=== PATIENT | female | born 1975 | race American Indian/Alaskan Native ===

== ENCOUNTER 2018-04-19 23:43 | Emergency (ER) | payer SELFPAY ==
[2018-04-20] MEDS ORDERED: MOTRIN ONE (02:55)
[2018-04-20] MEDS ORDERED: MOTRIN PO ONE (03:02)
--- NOTE | 2018-04-20 04:13 | XRay Report ---
FINAL REPORT EXAM: XR SPINE LUMBOSACRAL 2-3V HISTORY: lower back pain TECHNIQUE: AP and lateral views lumbar spine PRIORS: None. FINDINGS: Lumbar lordosis is intact. Vertebral body heights and intervertebral disc spaces are preserved. No listhesis, spondylolysis or other fracture. IMPRESSION: Unremarkable lumbar spine radiographs.
--- NOTE | 2018-04-20 04:15 | XRay Report ---
FINAL REPORT EXAM: XR RIBS UNILAT 2V LT HISTORY: left rib pain TECHNIQUE: AP chest radiograph with oblique view of the left rib cage PRIORS: None. FINDINGS: No mediastinal shift. Cardiac silhouette is not enlarged. No pneumothorax, effusion, or focal pulmonary opacity. No acute skeletal finding. IMPRESSION: No displaced rib fracture or acute pulmonary finding.
--- NOTE | 2018-04-20 04:17 | XRay Report ---
FINAL REPORT EXAM: XR HIP 2-3V LT HISTORY: left hip pain COMPARISONS: None. FINDINGS: AP pelvis with lateral view left hip Left hip joint is intact. Small os acetabuli is noted. Hip joint spaces are otherwise symmetric and preserved. No displaced fracture. Sacroiliac joints and pubic symphysis are unremarkable. IMPRESSION: No displaced fracture or other acute finding.
[2018-04-20] MEDS ORDERED: TORADOL IM ONE (05:12)
--- NOTE | 2018-04-20 05:24 | Emergency Department Report ---
ED Fall HPI - General Chief Complaint: Fall Stated Complaint: FALL/LEFT SIDE/BACK PAIN Time Seen by Provider: 04/20/18 05:09 Source: patient Mode of arrival: Ambulatory - History of Present Illness Initial Comments: Patient is 42-year-old [place] female states she failed, no steps this morning complains of neck and hip pain; Forward and exacerbated by movement and deep breathing . Denies shortness of breath denies dizziness at this time patient is ambulatory and triaged no acute distress MD Complaint: fall Onset/Timin -: hour(s) Fall From: standing When Fall Occurred: 4-6 hours [employer] Fall Witnessed: yes, by family Place Fall Occurred: home Loss of Consciousness: none Prolonged Down Time?: no Symptoms Prior to Fall: lightheadedness, dizziness, chest pain, palpitations Location: neck, back Severity: moderate Severity scale (0 -10): 4 Quality: aching Context: tripped/slipped Associated Symptoms: neck pain. denies: headache, numbness, weakness, chest paint, shortness of breath, abdominal pain, hematuria, lightheaded, vertigo, confusion - Related Data Previous Rx's Medication Instructions Recorded Last Taken Type Cyclobenzaprine [Flexeril 10mg] 10 mg PO TID PRN #15 tablet 01/12/15 Unknown Rx Diclofenac Sodium 75 mg PO BID #20 tablet. 01/12/15 Unknown Rx HYDROcodone/APAP 5-325 [[place] 1 each PO Q6HR PRN #15 tablet 08/14/15 Unknown Rx 5/325] Butalb/Acetamin/Caff 50-325-40 1 tab PO Q6HR PRN #7 tab 01/09/16 Unknown Rx [Fioricet] Ibuprofen [Motrin 600 MG tab] 600 mg PO Q8H PRN #40 tablet 02/16/16 Unknown Rx Sulfamethoxazole/Trimethoprim 1 each PO BID #20 tablet 02/16/16 Unknown Rx [Bactrim DS TAB] traMADol [Ultram] 50 mg PO Q6HR PRN #20 tablet 02/16/16 Unknown Rx Cyclobenzaprine [Flexeril] 10 mg PO BID PRN #20 tablet 04/20/18 Unknown Rx Menthol/Camphor [[place] 1 applicatio TP TID PRN #1 tube 04/20/18 Unknown Rx Ointment] Naproxen [Naprosyn] 500 mg PO BID PRN #30 tablet 04/20/18 Unknown Rx Allergies Allergy/AdvReac Type Severity Reaction Status Date / Time No Known Allergies Allergy Verified 01/12/15 09:13 ED Review of Systems ROS: Stated complaint: FALL/LEFT SIDE/BACK PAIN Other details as noted in HPI Constitutional: denies: chills, fever Eyes: denies: eye pain, eye discharge, vision change ENT: denies: ear pain, throat pain Respiratory: denies: cough, shortness of breath, wheezing Cardiovascular: denies: chest pain, palpitations Endocrine: no symptoms reported Gastrointestinal: denies: abdominal pain, nausea, diarrhea Genitourinary: denies: urgency, dysuria, discharge Musculoskeletal: back pain, arthralgia, myalgia. denies: joint swelling Skin: denies: rash, lesions Neurological: vertigo. denies: headache, weakness, numbness, paresthesias, abnormal gait Psychiatric: denies: anxiety, depression Hematological/Lymphatic: denies: easy bleeding, easy bruising ED Past Medical Hx - Past Medical History Hx Hypertension: Yes - Surgical History Additional Surgical History: Left ankle - Social History Smoking Status: Current Every Day Smoker Substance Use Type: None - Medications Home Medications: Home Medications Medication Instructions Recorded Confirmed Last Taken Type Cyclobenzaprine [Flexeril 10mg] 10 mg PO TID PRN #15 tablet 01/12/15 Unknown Rx Diclofenac Sodium 75 mg PO BID #20 tablet. 01/12/15 Unknown Rx HYDROcodone/APAP 5-325 [[place] 1 each PO Q6HR PRN #15 tablet 08/14/15 Unknown Rx 5/325] Butalb/Acetamin/Caff 50-325-40 1 tab PO Q6HR PRN #7 tab 01/09/16 Unknown Rx [Fioricet] Ibuprofen [Motrin 600 MG tab] 600 mg PO Q8H PRN #40 tablet 02/16/16 Unknown Rx Sulfamethoxazole/Trimethoprim 1 each PO BID #20 tablet 02/16/16 Unknown Rx [Bactrim DS TAB] traMADol [Ultram] 50 mg PO Q6HR PRN #20 tablet 02/16/16 Unknown Rx Cyclobenzaprine [Flexeril] 10 mg PO BID PRN #20 tablet 04/20/18 Unknown Rx Menthol/Camphor [[place] 1 applicatio TP TID PRN #1 tube 04/20/18 Unknown Rx Ointment] Naproxen [Naprosyn] 500 mg PO BID PRN #30 tablet 04/20/18 Unknown Rx ED Physical Exam - General Limitations: No Limitations General appearance: alert, in no apparent distress - Head Head exam: Present: atraumatic, normocephalic - Eye Eye exam: Present: normal appearance, PERRL, EOMI Pupils: Present: normal accommodation - ENT ENT exam: Present: normal orophraynx, mucous membranes dry, mucous membranes moist, TM's normal bilaterally - Neck Neck exam: Present: normal inspection, tenderness, meningismus, full ROM. Absent: lymphadenopathy, thyromegaly - Expanded Neck Exam Expanded Neck exam: Absent: tenderness, midline deformity, anterior neck swelling, thyroid mass, carotid bruit, tracheal deviation - Respiratory Respiratory exam: Present: normal lung sounds bilaterally, wheezes, stridor. Absent: respiratory distress - GI/Abdominal GI/Abdominal exam: Present: soft, distended, rebound, normal bowel sounds - Rectal Rectal exam: Present: deferred - Extremities Exam Extremities exam: Present: normal inspection - Back Exam Back exam: Present: normal inspection - Neurological Exam Neurological exam: Present: alert, oriented X3 - Psychiatric Psychiatric exam: Present: normal affect, normal mood - Skin Skin exam: Present: warm, dry, intact, normal color ED Course Vital Signs 04/20/18 02:56 Temperature 99.1 F Pulse Rate 86 Respiratory 18 Rate Blood Pressure 129/85 O2 Sat by Pulse 99 Oximetry ED Medical Decision Making - Radiology Data Radiology results: report reviewed, image reviewed X-rays revealed some lumbar and hip demonstrate no fracture no soft tissue abnormality - Medical Decision Making X-rays negative for fracture pain improved with Ultram patient is [facility] without acute respiratory distress and is now 2/ there is no bruising no abrasions no lesions plan NSAIDs muscle relaxants cryotherapy moist heat and follow-up with PCP in 2-3 days return to ED if symptoms worsen , Patient verbalized understanding and agreement saying we DC'd to home in stable condition at this time Critical care attestation.: If time is entered above; I have spent that time in minutes in the direct care of this critically ill patient, excluding procedure time. ED Disposition Clinical Impression: Fall Qualifiers: Encounter type: initial encounter Qualified Code(s): W19.XXXA - Unspecified fall, initial encounter Disposition: TO HOME OR SELFCARE Is pt being admited?: No Does the pt Need Aspirin: No Condition: Good Instructions: Fall Prevention (ED), Chest Pain (ED) Prescriptions: Cyclobenzaprine [Flexeril] 10 mg PO BID PRN #20 tablet PRN Reason: Muscle Spasm Menthol/Camphor [[place] Ointment] 1 applicatio TP TID PRN #1 tube PRN Reason: pain Naproxen [Naprosyn] 500 mg PO BID PRN #30 tablet PRN Reason: pain Referrals: PRIMARY CARE,MD [Primary Care Provider] - 3-5 Days Forms: Work/School Release Form(ED) Time of Disposition: 05:45
[2018-04-20 05:25] VITALS: BP 130/84
== END 2018-04-20 05:55 | disposition home or self-care (01) ==
LOC: ED 23:43
DX: M54.2 Cervicalgia (principal); M25.552 Pain in left hip; I10 Essential (primary) hypertension; M54.5 Low back pain; R07.81 Pleurodynia; F17.200 Nicotine dependence, unspecified, uncomplicated; W01.0XXA Fall on same level from slipping, tripping and stumbling without subsequent striking against object, initial encounter; Y93.89 Activity, other specified; Y99.8 Other external cause status; Y92.009 Unspecified place in unspecified non-institutional (private) residence as the place of occurrence of the external cause
CPT/HCPCS: 71100; 72100; 73502; 96372; 99283; J1885

== ENCOUNTER 2020-04-07 17:34 | Emergency (ER) | payer SELFPAY ==
[2020-04-07 17:39] VITALS: BP 127/79
--- NOTE | 2020-04-07 18:16 | XRay Report ---
HISTORY:hand injury COMPARISON: None. TECHNIQUE: AP lateral and obliques views were obtained FINDINGS: Bones: No fracture or dislocation. Joint spaces: Maintained. Soft tissues: No significant abnormality. Additional findings: None. IMPRESSION: 1. No significant abnormality. Signer Name: Sanjay Anderson MD Signed: 04/07/2020 6:11 PM Workstation Name: [id number]
[2020-04-07] MEDS ORDERED: IBUPROFEN 600 MG TAB PO ONE (20:46)
[2020-04-07] MEDS ORDERED: ACETAMINOPHEN W/CODEINE 300-30 MG TAB PO ONE (20:47)
--- NOTE | 2020-04-07 20:58 | Emergency Department Report ---
ED Upper Extremity Inj HPI - General Chief Complaint: Extremity Injury, Upper Stated Complaint: RT FINGER INJURED Time Seen by Provider: 04/07/20 20:45 Source: patient Mode of arrival: Ambulatory Limitations: No Limitations - History of Present Illness Initial Comments: 44-year-old -Turk[place] female presents to the emergency room complaining of finger pain sustained from jamming her finger to a solid object while at work. Patient reports his pain with movement and swelling. Complaint: Injury to:: right, finger -: This afternoon Other Extremity Injury: Fingers: Right (Middle finger) Other Injuries: none Handedness: right Severity scale (0 -10): 9 Improves With: none Worsens With: movement of extremity Context: crush (Between a pallet) Associated Symptoms: denies other symptoms - Related Data Previous Rx's Medication Instructions Recorded Last Taken Type Cyclobenzaprine [Flexeril 10mg] 10 mg PO TID PRN #15 tablet 01/12/15 Unknown Rx Diclofenac Sodium 75 mg PO BID #20 tablet. 01/12/15 Unknown Rx HYDROcodone/APAP 5-325 [[place] 1 each PO Q6HR PRN #15 tablet 08/14/15 Unknown Rx 5/325] Sulfamethoxazole/Trimethoprim 1 each PO BID #20 tablet 02/16/16 Unknown Rx [Bactrim DS TAB] traMADoL [Ultram] 50 mg PO Q6HR PRN #20 tablet 02/16/16 Unknown Rx Cyclobenzaprine [Flexeril] 10 mg PO BID PRN #20 tablet 04/20/18 Unknown Rx Menthol/Camphor [[place] 1 applicatio TP TID PRN #1 tube 04/20/18 Unknown Rx Ointment] Naproxen [Naprosyn] 500 mg PO BID PRN #30 tablet 04/20/18 Unknown Rx Butalb/Acetamin/Caff 50-325-40 1 tab PO Q6HR PRN #7 tab 06/24/18 Unknown Rx [Fioricet 50-325-40] Ibuprofen [Motrin 600 MG tab] 600 mg PO Q8H PRN #30 tablet 04/07/20 Unknown Rx Allergies Allergy/AdvReac Type Severity Reaction Status Date / Time No Known Allergies Allergy Verified 01/12/15 09:13 ED Review of Systems ROS: Stated complaint: RT FINGER INJURED Other details as noted in HPI Comment: All other systems reviewed and negative ED Past Medical Hx - Past Medical History Previous Medical History?: Yes Hx Hypertension: Yes - Surgical History Past Surgical History?: Yes Additional Surgical History: Left ankle - Social History Smoking Status: Current Some Day Smoker - Medications Home Medications: Home Medications Medication Instructions Recorded Confirmed Last Taken Type Cyclobenzaprine [Flexeril 10mg] 10 mg PO TID PRN #15 tablet 01/12/15 Unknown Rx Diclofenac Sodium 75 mg PO BID #20 tablet. 01/12/15 Unknown Rx HYDROcodone/APAP 5-325 [[place] 1 each PO Q6HR PRN #15 tablet 08/14/15 Unknown Rx 5/325] Sulfamethoxazole/Trimethoprim 1 each PO BID #20 tablet 02/16/16 Unknown Rx [Bactrim DS TAB] traMADoL [Ultram] 50 mg PO Q6HR PRN #20 tablet 02/16/16 Unknown Rx Cyclobenzaprine [Flexeril] 10 mg PO BID PRN #20 tablet 04/20/18 Unknown Rx Menthol/Camphor [[place] 1 applicatio TP TID PRN #1 tube 04/20/18 Unknown Rx Ointment] Naproxen [Naprosyn] 500 mg PO BID PRN #30 tablet 04/20/18 Unknown Rx Butalb/Acetamin/Caff 50-325-40 1 tab PO Q6HR PRN #7 tab 06/24/18 Unknown Rx [Fioricet 50-325-40] Ibuprofen [Motrin 600 MG tab] 600 mg PO Q8H PRN #30 tablet 04/07/20 Unknown Rx ED Physical Exam - General Limitations: No Limitations General appearance: alert, in no apparent distress - Head Head exam: Present: atraumatic, normocephalic - Eye Eye exam: Present: normal appearance - ENT ENT exam: Present: mucous membranes moist - Neck Neck exam: Present: normal inspection, full ROM - Expanded Upper Extremity Exam Left Shoulder Exam: Present: normal inspection Upper Arm exam: Present: normal inspection Elbow exam: Present: normal inspection Forearm Wrist exam: Present: normal inspection Hand Wrist exam: Present: tenderness (Left middle finger), swelling (Left middle finger), erythema (Left middle finger) Vascular: Present: normal capillary refill - Neurological Exam Neurological exam: Present: alert, oriented X3 - Psychiatric Psychiatric exam: Present: normal affect, normal mood - Skin Skin exam: Present: warm, dry, intact, normal color. Absent: rash ED Course Vital Signs 04/07/20 17:38 Temperature 98.7 F Pulse Rate 90 Respiratory 18 Rate Blood Pressure 127/79 O2 Sat by Pulse 97 Oximetry ED Medical Decision Making - Radiology Data Radiology results: report reviewed [facility] [address] [place] [address] XRay Report Signed Patient: TRU CALVERT MR#: [id number] : 1975 Acct:[id number] Age/Sex: 44 / F ADM Date: 04/07/20 Loc: ED Attending Dr: Ordering Physician: ED MD JAVIER Date of Service: 04/07/20 Procedure(s): XR hand 3+V RT Accession Number(s): [id number] cc: ED MD JAVIER Fluoro Time In Minutes: HISTORY:hand injury COMPARISON: None. TECHNIQUE: AP lateral and obliques views were obtained FINDINGS: Bones: No fracture or dislocation. Joint spaces: Maintained. Soft tissues: No significant abnormality. Additional findings: None. IMPRESSION: 1. No significant abnormality. Signer Name: Sanjay Anderson MD Signed: 04/07/2020 6:11 PM Workstation Name: [id number] Transcribed By: WG Dictated By: Sanjay nAderson MD Electronically Authenticated By: Sanjay Anderson MD Signed Date/Time: 04/07/201810 DD/ 10 TD/TT: - Medical Decision Making 44-year-old -Turk[place] female presents to the emergency room complaining of finger pain sustained from jamming her finger to a solid object while at work. Patient reports his pain with movement and swelling. X-ray of right middle finger shows no dislocation or fracture. Patient will be placed in a finger splint. Patient was given ibuprofen and Tylenol 3 for pain management. Patient be discharged home on ibuprofen 600 mg every 8 hours as needed. Patient be also referred to orthopedics if finger does not improved in a few weeks. Critical care attestation.: If time is entered above; I have spent that time in minutes in the direct care of this critically ill patient, excluding procedure time. ED Disposition Clinical Impression: Finger injury Qualifiers: Encounter type: initial encounter Laterality: left Qualified Code(s): S69.92XA - Unspecified injury of left wrist, hand and finger(s), initial encounter Disposition: DC-01 TO HOME OR SELFCARE Is pt being admited?: No Does the pt Need Aspirin: No Condition: Stable Instructions: Finger Sprain (ED) Additional Instructions: X-ray is negative for any dislocation or fracture/broken finger. I recommend wearing the splint for comfort. Ibuprofen or naproxen for pain management. You can follow-up with a orthopedic provider if you feel that it is not improving in a week or 2. Prescriptions: Ibuprofen [Motrin 600 MG tab] 600 mg PO Q8H PRN #30 tablet PRN Reason: Pain Referrals: PRIMARY CAREMD [Primary Care Provider] - 3-5 Days MIC GARCIA MD [Staff Physician] - 3-5 Days Forms: Work/School Release Form(ED)
== END 2020-04-07 21:06 | disposition home or self-care (01) ==
LOC: ED 17:34
DX: S69.91XA Unspecified injury of right wrist, hand and finger(s), initial encounter (principal); I10 Essential (primary) hypertension; F17.200 Nicotine dependence, unspecified, uncomplicated; Z79.899 Other long term (current) drug therapy; Z98.890 Other specified postprocedural states; W23.0XXA Caught, crushed, jammed, or pinched between moving objects, initial encounter; Y93.89 Activity, other specified; Y92.69 Other specified industrial and construction area as the place of occurrence of the external cause; Y99.0 Civilian activity done for income or pay